=== PATIENT | female | born 1965 | race African-American/Black ===

== ENCOUNTER 2018-11-01 12:33 | Emergency (ER) | payer OTHER ==
[~2018-11-01] VITALS: Ht 175.3 cm; Wt 69.5 kg
[2018-11-01] MEDS ORDERED: OLAN10TA3 PO (13:23)
[2018-11-01] MEDS ORDERED: LISI-662 PO (13:23)
[2018-11-01] MEDS ORDERED: LISI1TAB13 PO (13:26)
[2018-11-01] MEDS ORDERED: KETOROLAC TROMETHAMINE 60 MG/2 ML VIAL IM ONE (14:15)
[2018-11-01] MEDS ORDERED: ONDANSETRON HCL 4 MG TABLET PO ONE (14:30)
[2018-11-01 15:15] VITALS: BP 138/83
== END 2018-11-01 15:23 | disposition home or self-care (01) ==
LOC: EMS 12:35
DX: K04.7 Periapical abscess without sinus (principal); N95.1 Menopausal and female climacteric states; I10 Essential (primary) hypertension; F32.9 Major depressive disorder, single episode, unspecified; F17.210 Nicotine dependence, cigarettes, uncomplicated
CPT/HCPCS: 96372; 99283; J1885; Q0162

== ENCOUNTER 2019-07-17 10:12 | Emergency (ER) | payer OTHER ==
[~2019-07-17] VITALS: Ht 175.3 cm; Wt 73.2 kg
[~2019-07-17 10:12] MED LIST: LISI1TAB29 PO; OLAN10TA3 PO
[2019-07-17] MEDS ORDERED: PROM5SYR2 PO (10:20)
[2019-07-17] MEDS ORDERED: ALBU8HFA IH (10:20)
[2019-07-17] MEDS ORDERED: AMOX250T PO (10:20)
[2019-07-17 10:58] LABS: BASOPHILS % (AUTO) 1.2 % (0.0-2.0); EOSINOPHILS % (AUTO) 8.5 % (1.0-6.0); HEMATOCRIT 40.1 % (36-46); HEMOGLOBIN 13.5 g/dL (12.0-16.0); LYMPHOCYTES # (AUTO) 0.6 K/uL (1.0-4.8); LYMPHOCYTES % (AUTO) 18.5 % (22.0-44.0); MEAN CORPUSCULAR HEMOGLOBIN 31.5 pg (26.0-34.0); MEAN CORPUSCULAR HGB CONC 33.6 G/dL (31.0-37.0); MEAN CORPUSCULAR VOLUME 94 fL (80-100); MONOCYTES # (AUTO) 0.4 K/uL (0.1-1.0); MONOCYTES % (AUTO) 11.5 % (2.0-9.0); NEUTROPHILS # (AUTO) 1.8 K/uL (1.8-7.7); NEUTROPHILS % (AUTO) 60.3 % (40.0-70.0); PLATELET COUNT (AUTO) 158 K/uL (150-450); RED BLOOD CELL COUNT(AUTO) 4.27 MIL/uL (4.00-5.20); RED CELL DISTRIBUTION WIDTH 15.4 % (11.5-14.5)
[2019-07-17 11:00] VITALS: BP 120/91
[2019-07-17] MEDS ORDERED: SODIUM CHLORIDE 0.9% 1,000 ML IV ONE (11:00)
[2019-07-17] MEDS ORDERED: ONDANSETRON HCL 4 MG/2 ML VIAL IVP ONE (11:00)
[2019-07-17] MEDS ORDERED: AMOX1TAB16 PO (11:02)
[2019-07-17] MEDS ORDERED: PROM118S4 PO (11:04)
[2019-07-17 11:07] LABS: ANION GAP 3 mmol/L (8-16); CALCIUM, TOTAL 9.9 mg/dL (8.8-10.5); CARBON DIOXIDE 34 mmol/L (22-29); CHLORIDE 100 mmol/L (98-107); CREATININE 1.02 mg/dL (0.60-1.30); GLOMERULAR FILTR. RATE CALC > 60 mL/min (>60); GLUCOSE,RANDOM 103 mg/dL (70-110); SODIUM SERUM 137 mmol/L (136-145); UREA NITROGEN, BLOOD 15 mg/dL (7-18)
[2019-07-17 11:18] LABS: ALANINE AMINOTRANSFERASE 26 U/L (12-78); ALBUMIN 4.7 g/dL (3.4-5.0); ALKALINE PHOSPHATASE 73 U/L (46-116); ASPARTATE AMINOTRANSFERASE 19 U/L (15-37); BILIRUBIN,TOTAL 0.3 mg/dL (0.1-1.0); HCG,QUANTITATIVE 2 mIU/mL (0-6); LIPASE 138 U/L (73-393); TOTAL PROTEIN, SERUM 8.5 g/dL (6.4-8.2)
[2019-07-17 11:19] LABS: APPEARANCE,URINE CLEAR (CLEAR); BILIRUBIN,URINE NEGATIVE (NEGATIVE); GLUCOSE, URINE (UA) NEGATIVE (NEGATIVE); KETONES,URINE NEGATIVE (NEGATIVE); LEUKOCYTE ESTERASE ,URINE MODERATE (NEGATIVE); NITRATE,URINE NEGATIVE (NEGATIVE); OCCULT BLOOD,URINE NEGATIVE (NEGATIVE); PROTEIN,URINE NEGATIVE (NEGATIVE); UROBILINOGEN,URINE 0.2 mg/dL (<=1.0)
[2019-07-17 11:51] LABS: RBC,URINE None Seen /HPF (0-2); WBC,URINE 0-2 /HPF (0-5)
[2019-07-17 11:52] LABS: BACTERIA,URINE None Seen /HPF (None Seen); SQUAMOUS EPITHELIAL CELL,UR Few /LPF (None Seen)
== END 2019-07-17 12:40 | disposition home or self-care (01) ==
LOC: EMS 10:16
DX: R11.0 Nausea (principal); R19.7 Diarrhea, unspecified; F17.210 Nicotine dependence, cigarettes, uncomplicated; Z79.899 Other long term (current) drug therapy
CPT/HCPCS: 36415; 80053; 81001; 83690; 84702; 85025; 96361; 96374; 99284; J2405; J7030

== ENCOUNTER 2019-09-11 16:06 | Emergency (ER) | payer OTHER ==
[~2019-09-11] VITALS: Ht 175.3 cm; Wt 71.8 kg
[~2019-09-11 16:06] MED LIST changes: +ALBU8HFA IH; +AMOX1TAB16 PO; +PROM118S5 PO
[2019-09-11 16:54] VITALS: BP 116/81
== END 2019-09-11 17:45 | disposition home or self-care (01) ==
LOC: EMS 16:06
DX: S02.5XXA Fracture of tooth (traumatic), initial encounter for closed fracture (principal); F17.210 Nicotine dependence, cigarettes, uncomplicated; I10 Essential (primary) hypertension; F20.9 Schizophrenia, unspecified; X58.XXXA Exposure to other specified factors, initial encounter; Y93.89 Activity, other specified; Y92.89 Other specified places as the place of occurrence of the external cause; Y99.8 Other external cause status
CPT/HCPCS: 99406

== ENCOUNTER 2022-02-20 19:05 | Emergency (ER) | payer MEDICARE, MEDICAID ==
[~2022-02-20] VITALS: Ht 175.3 cm; Wt 65.5 kg
[~2022-02-20 19:05] MED LIST changes: -AMOX1TAB16 PO; -LISI1TAB29 PO; +LISI1TAB53 PO; -OLAN10TA3 PO; +OLAN10TA74 PO; -PROM118S5 PO
[2022-02-20 21:13] LABS: BASOPHILS % (AUTO) 1.3 % (0.0-2.0); HEMATOCRIT 36.9 % (36-46); HEMOGLOBIN 12.1 g/dL (12.0-16.0); LYMPHOCYTES # (AUTO) 1.2 K/uL (1.0-4.8); LYMPHOCYTES % (AUTO) 34.7 % (22.0-44.0); MEAN CORPUSCULAR HEMOGLOBIN 30.8 pg (26.0-34.0); MEAN CORPUSCULAR HGB CONC 32.8 G/dL (31.0-37.0); MEAN CORPUSCULAR VOLUME 94 fL (80-100); MONOCYTES # (AUTO) 0.5 K/uL (0.1-1.0); MONOCYTES % (AUTO) 13.5 % (2.0-9.0); NEUTROPHILS # (AUTO) 1.6 K/uL (1.8-7.7); NEUTROPHILS % (AUTO) 45.5 % (40.0-70.0); PLATELET COUNT (AUTO) 186 K/uL (150-450); RED BLOOD CELL COUNT(AUTO) 3.92 MIL/uL (4.00-5.20); RED CELL DISTRIBUTION WIDTH 14.3 % (11.5-14.5)
[2022-02-20 21:20] LABS: ANION GAP 2 mmol/L (8-16); CALCIUM, TOTAL 9.5 mg/dL (8.8-10.5); CARBON DIOXIDE 33 mmol/L (22-29); CHLORIDE 100 mmol/L (98-107); CREATININE 1.08 mg/dL (0.60-1.30); GLUCOSE,RANDOM 110 mg/dL (70-110); POTASSIUM 4.4 mmol/L (3.5-5.1); SODIUM SERUM 135 mmol/L (136-145); UREA NITROGEN, BLOOD 30 mg/dL (7-18)
[2022-02-20 21:25] LABS: GLOMERULAR FILTR. RATE CALC > 60 mL/min (>60)
[2022-02-20 21:26] LABS: ALANINE AMINOTRANSFERASE 23 U/L (12-78); ALBUMIN 3.8 g/dL (3.4-5.0); ALKALINE PHOSPHATASE 69 U/L (46-116); ASPARTATE AMINOTRANSFERASE 23 U/L (15-37); BILIRUBIN,TOTAL 0.4 mg/dL (0.1-1.0); LIPASE 104 U/L (73-393)
[2022-02-20] MEDS ORDERED: OMEPRAZOLE 20 MG CAPSULE PO ONE (22:00)
[2022-02-20] MEDS ORDERED: MAG HYDROX/AL HYDROX/SIMETH ES 30 ML SUSPENSION UDCUP PO ONE (22:00)
[2022-02-20] MEDS ORDERED: ACETAMINOPHEN 500 MG TABLET PO ONE (22:00)
[2022-02-20] MEDS ORDERED: ONDANSETRON HCL 4 MG TABLET PO ONE (22:00)
[2022-02-21] VITALS: BP 124/69
[2022-02-21] MEDS ORDERED: ONDA-104 PO (00:37)
[2022-02-21] MEDS ORDERED: ACET-66 PO (00:37)
[2022-02-21] MEDS ORDERED: MAG30ORA11 PO (00:37)
[2022-02-21] MEDS ORDERED: OMEP20 PO (00:37)
== END 2022-02-21 01:49 | disposition home or self-care (01) ==
LOC: EMS 19:06
DX: K29.70 Gastritis, unspecified, without bleeding (principal); I10 Essential (primary) hypertension; F20.9 Schizophrenia, unspecified; J43.9 Emphysema, unspecified; F17.210 Nicotine dependence, cigarettes, uncomplicated; Z86.2 Personal history of diseases of the blood and blood-forming organs and certain disorders involving the immune mechanism; Z87.09 Personal history of other diseases of the respiratory system; Z85.42 Personal history of malignant neoplasm of other parts of uterus; Z86.59 Personal history of other mental and behavioral disorders; Z98.890 Other specified postprocedural states
CPT/HCPCS: 99284; 80053; 83690; 84484; 85025; Q0162